=== PATIENT | female | born 1995 | race Caucasian/White ===

== ENCOUNTER 2017-10-25 17:56 | Emergency (ER) | payer OTHER ==
--- NOTE | 2017-10-25 19:11 | EDPHY ---
H & P Stated Complaint: snowboarding accident yesterday, c/o neck pain Time Seen by Provider: 10/25/17 19:07 HPI/ROS: CHIEF COMPLAINT: Neck pain HISTORY OF PRESENT ILLNESS: The patient is a 22-year-old healthy female who was snowboarding yesterday. She states that she caught an edge and fell forward down the hill and had a whiplash-type injury to her neck. She did not hit her head. She caught herself with her arms. She however felt enough pain that she called life skills educator who took her down to the bottom where she rested for an hour or 2 and then decided to go snowboarding again. She again fell forward in the same manner and had more neck pain. She was able to sleep last night but this morning has stiff neck and pain when looking down. No headache. No injuries to extremities. No bowel or bladder incontinence. REVIEW OF SYSTEMS: Constitutional: denies: chills, fever, recent illness, recent injury EENTM: denies: blurred vision, double vision, nose congestion Respiratory: denies: cough, shortness of breath Cardiac: denies: chest pain, irregular heart rate, lightheadedness, palpitations Gastrointestinal/Abdominal: denies: abdominal pain, diarrhea, nausea, vomiting, blood streaked stools Genitourinary: denies: dysuria, frequency, hematuria, pain Musculoskeletal: See HPI Skin: denies: lesions, rash, jaundice, bruising Neurological: denies: headache, numbness, paresthesia, tingling, dizziness, weakness Hematologic/Lymphatic: denies: blood clots, easy bleeding, easy bruising Immunologic/allergic: denies: HIV/AIDS, transplant EXAM: GENERAL: Well-appearing, well-nourished and in no acute distress. HEAD: Atraumatic, normocephalic. EYES: Pupils equal round and reactive to light, extraocular movements intact, sclera anicteric, conjunctiva are normal. ENT: TMs normal, nares patent, oropharynx clear without exudates. Moist mucous membranes. NECK: Bilateral paraspinous muscle pain, no tenderness or swelling. Mild pain with range of motion. Patient placed in a collar triage. LUNGS: Breath sounds clear to auscultation bilaterally and equal. No wheezes rales or rhonchi. HEART: Regular rate and rhythm without murmurs, rubs or gallops. ABDOMEN: Soft, nontender, normoactive bowel sounds. No guarding, no rebound. No masses appreciated. BACK: No CVA tenderness, no spinal tenderness, step-offs or deformities EXTREMITIES: Normal range of motion, no pitting or edema. No clubbing or cyanosis. NEUROLOGICAL: Cranial nerves II through XII grossly intact. Normal speech, normal gait. 5/5 strength, normal movement in all extremities, normal sensation PSYCH: Normal mood, normal affect. SKIN: Warm, dry, normal turgor, no visible rashes or lesions. Source: Patient Exam Limitations: No limitations - Personal History LMP (Females 10-55): 15-21 Days Ago Current Tetanus/Diphtheria Vaccine: Yes Current Tetanus Diphtheria and Acellular Pertussis (TDAP): Yes Tetanus Vaccine Date: < 10 years - Medical/Surgical History Hx Asthma: No Hx Chronic Respiratory Disease: No Hx Diabetes: No Hx Cardiac Disease: No Hx Renal Disease: No Hx Cirrhosis: No Hx Alcoholism: No Hx HIV/AIDS: No Hx Splenectomy or Spleen Trauma: No Other PMH: denies - Family History Significant Family History: No pertinent family hx - Social History Smoking Status: Never smoked Alcohol Use: Sober Drug Use: None Constitutional: Initial Vital Signs Temperature (C) 36.6 C 10/25/17 17:58 Heart Rate 90 10/25/17 17:58 Respiratory Rate 20 10/25/17 17:58 Blood Pressure 119/88 H 10/25/17 17:58 O2 Sat (%) 100 10/25/17 17:58 O2 Delivery Mode Room Air Allergies/Adverse Reactions: No Known Allergies Allergy (Verified 10/25/17 17:57) Home Medications: Medication Instructions Recorded Control 10/25/17 Medical Decision Making - Diagnostics Imaging: Discussed imaging studies w/ call center agent Radiologist ED Course/Re-evaluation: 7:[address] p[address] we discussed the CT results. The patient is reassured. After pain medication or muscle relaxants which she declines. She will take it Tylenol. I cleared her cervical collar. We discussed indications for returning. She has no focal neurologic deficits. Differential Diagnosis: Partial list of the Differential diagnosis considered include but were not limited to; cervical strain, fracture and although unlikely based on the history and physical exam, I also considered dissection, dislocation, infection. I discussed these differential diagnoses and the plan with the patient as well as the usual and expected course. The patient understands that the diagnosis is provisional and that in medicine we are not always correct and that further workup is often warranted. Usual and customary warnings were given. All of the patient's questions were answered. The patient was instructed to return to the emergency department should the symptoms at all worsen or return, otherwise to followup with the physician as we discussed. - Data Points Medications Given: Discontinued Medications Acetaminophen (Tylenol) 1,000 mg PO EDNOW ONE Stop: 10/25/17 19:51 Last Admin: 10/25/17 20:14 Dose: 1,000 mg Departure - Departure Disposition: Home, Routine, Self-Care Clinical Impression: Cervical muscle strain Qualifiers: Encounter type: initial encounter Qualified Code(s): S16.1XXA - Strain of muscle, fascia and tendon at neck level, initial encounter Condition: Fair Instructions: Cervical Strain (ED) Referrals: Eli Rodriguez MD [Primary Care Provider] - As per Instructions
[2017-10-25] MEDS ORDERED: ACETAMINOPHEN 500 MG TAB PO ONE (19:50)
[2017-10-25 20:16] VITALS: BP 93/50
== END 2017-10-25 20:19 | disposition home or self-care (01) ==
DX: S16.1XXA Strain of muscle, fascia and tendon at neck level, initial encounter (principal); V00.311A Fall from snowboard, initial encounter; Y99.8 Other external cause status; Y93.23 Activity, snow (alpine) (downhill) skiing, snowboarding, sledding, tobogganing and snow tubing